=== PATIENT | female | born 1985 | race Two or more races ===

== ENCOUNTER 2017-03-19 17:26 | Emergency (ER) | payer OTHER ==
[~2017-03-19] VITALS: Ht 149.9 cm; Wt 62.6 kg
[2017-03-19 17:27] VITALS: BP 112/67
[2017-03-19] MEDS ORDERED: METF850T2 PO (18:19)
== END 2017-03-19 19:07 | disposition home or self-care (01) ==
LOC: ED 19:00
DX: O03.9 Complete or unspecified spontaneous abortion without complication (principal)
CPT/HCPCS: 36415; 76801; 84702; 85025; 86901; 99285

== ENCOUNTER 2018-03-21 09:22 | Outpatient (CLI) | payer OTHER ==
[~2018-03-21] VITALS: Ht 149.9 cm; Wt 64.5 kg
[~2018-03-21 09:22] MED LIST: METF850T2 PO
[2018-03-21 09:50] VITALS: BP 109/59
== END 2018-03-21 11:00 | disposition home or self-care (01) ==
LOC: LDOP 09:22
PROVIDERS: ATTEND Student in an Organized Health Care Education/Training Program
DX: O42.912 Preterm premature rupture of membranes, unspecified as to length of time between rupture and onset of labor, second trimester (principal)
CPT/HCPCS: 59025; 84112; 99201; G0463

== ENCOUNTER 2018-07-15 20:07 | Outpatient (CLI) | payer OTHER ==
[~2018-07-15] VITALS: Ht 149.9 cm; Wt 68.1 kg
[~2018-07-15 20:07] MED LIST changes: +METF850T10 PO; -METF850T2 PO
== END 2018-07-15 21:38 | disposition home or self-care (01) ==
LOC: LDOP 20:07
PROVIDERS: ATTEND Student in an Organized Health Care Education/Training Program
DX: O26.893 Other specified pregnancy related conditions, third trimester (principal); Z3A.37 37 weeks gestation of pregnancy; R10.9 Unspecified abdominal pain
CPT/HCPCS: 59025; 99211; G0463

== ENCOUNTER 2018-07-29 11:39 | Inpatient (IN) | payer OTHER ==
[~2018-07-29] VITALS: Ht 149.9 cm; Wt 69.0 kg
[2018-07-29] MEDS ORDERED: OXYTOCIN 30U/ 0.9% NaCL 500ML 500 ML IV ONE (11:43)
[2018-07-29] MEDS: LACTATED RINGERS 1,000 ML IV SCH ×2 (11:43→19:43)
[2018-07-29] MEDS ORDERED: CALCIUM CARBONATE 500 MG TAB.CHEW PO PRN (12:00)
[2018-07-29] MEDS ORDERED: ONDANSETRON 2MG/ML, 2ML IVPush PRN (12:00)
[2018-07-29 12:22] LABS: BASOPHILS # (AUTO) 0.03 x10^3/uL (0-0.1); BASOPHILS % (AUTO) 0 % (0-1); EOSINOPHILS # (AUTO) 0.01 x10^3/uL (0-0.4); EOSINOPHILS % (AUTO) 0 % (1-7); LYMPHOCYTES # (AUTO) 2.02 x10^3/uL (1-3.4); LYMPHOCYTES % (AUTO) 29 % (22-44); MD NO; MEAN PLATELET VOLUME 10.5 fL (7.4-10.4); MONOCYTES # (AUTO) 0.35 x10^3/uL (0.2-0.8); MONOCYTES % (AUTO) 5 % (2-9); NEUTROPHILS # (AUTO) 4.58 x10^3/uL (1.8-6.8); NEUTROPHILS % (AUTO) 66 % (42-75); PLATELET COUNT 185 x10^3/uL (130-400); RED CELL DISTRIBUTION WIDTH 15.8 % (9.6-15.2)
[2018-07-29] MEDS ORDERED: NEWBORN KIT ONE (12:26)
[2018-07-29] MEDS ORDERED: MISOPROSTOL 200 MCG TABLET ONE (14:30)
[2018-07-29] MEDS ORDERED: OXYTOCIN 30U/ 0.9% NaCL 500ML 500 ML ONE ×2 (14:30→18:24)
[2018-07-29] MEDS ORDERED: LIDOCAINE/PF 1%, 30ML ONE (14:30)
[2018-07-29] MEDS ORDERED: FENTANYL PF 100 MCG/2ML ONE ×2 (16:04→16:50)
[2018-07-29] MEDS: FENTANYL PF 100 MCG/2ML IVPush PRN ×2 (16:08→17:03)
[2018-07-29] MEDS ORDERED: CARBOPROST TROMETHAMINE 250 MCG/ML, 1ML IM PRN (18:30)
[2018-07-29] MEDS ORDERED: METHYLERGONOVINE 0.2 MG/ML IM PRN (18:30)
[2018-07-29] MEDS ORDERED: OXYcodone IR 5MG TABLET PO PRN (18:30)
[2018-07-29] MEDS ORDERED: IBUPROFEN 600 MG TABLET PO PRN (18:30)
[2018-07-29] MEDS ORDERED: OXYcodone/APAP 5/325MG TABLET PO PRN (18:30)
[2018-07-29] MEDS ORDERED: DOCUSATE 100 MG CAPSULE PO PRN (18:30)
[2018-07-29] MEDS ORDERED: IBUPROFEN 800 MG TABLET PO PRN (18:30)
[2018-07-29] MEDS ORDERED: BISACODYL 10 MG SUPP PR PRN (18:30)
[2018-07-29] MEDS ORDERED: MISOPROSTOL 200 MCG TABLET PR PRN (18:30)
[2018-07-29] MEDS ORDERED: ACETAMINOPHEN 325 MG TABLET PO PRN (18:30)
[2018-07-29] MEDS: OXYTOCIN 30U/ 0.9% NaCL 500ML 500 ML IV SCH (18:52)
[2018-07-29 21:18] VITALS: BP 105/66
[2018-07-30 00:53] VITALS: BP 100/62
[2018-07-30 02:02] LABS: BASOPHILS # (AUTO) 0.05 x10^3/uL (0-0.1); BASOPHILS % (AUTO) 1 % (0-1); EOSINOPHILS % (AUTO) 0 % (1-7); LYMPHOCYTES % (AUTO) 19 % (22-44); MD NO; MEAN CORPUSCULAR HEMOGLOBIN 29.1 pg (27.0-34.8); MEAN CORPUSCULAR HGB CONC 33.2 g/dL (32.4-35.8); MEAN CORPUSCULAR VOLUME 87.4 fL (80-100); MEAN PLATELET VOLUME 9.8 fL (7.4-10.4); MONOCYTES # (AUTO) 0.26 x10^3/uL (0.2-0.8); MONOCYTES % (AUTO) 2 % (2-9); NEUTROPHILS # (AUTO) 8.78 x10^3/uL (1.8-6.8); NEUTROPHILS % (AUTO) 79 % (42-75); PLATELET COUNT 164 x10^3/uL (130-400); RED BLOOD COUNT 3.98 x10^6/uL (3.82-5.3)
[2018-07-30] MEDS: LACTATED RINGERS 1,000 ML IV SCH ×2 (03:43→11:43)
[2018-07-30] MEDS: OXYTOCIN 30U/ 0.9% NaCL 500ML 500 ML IV SCH ×2 (04:14→12:23)
[2018-07-30 04:30] VITALS: BP 99/64
[2018-07-30] MEDS ORDERED: PRENATAL VIT/IRON/FA 1 EACH TABLET PO SCH (09:00)
[2018-07-30 09:32] VITALS: BP 96/62
[2018-07-30 12:19] VITALS: BP 97/61
[2018-07-30 16:37] VITALS: BP 98/79
[2018-07-30] MEDS ORDERED: DOCU-131 PO (16:48)
[2018-07-30] MEDS ORDERED: IBUP-1222 PO (16:48)
== END 2018-07-30 17:42 | disposition home or self-care (01) | DRG 807 ==
LOC: LDIP 11:39 → 2NW 20:18
PROVIDERS: ADMIT Student in an Organized Health Care Education/Training Program; ATTEND Student in an Organized Health Care Education/Training Program
PROC: 10E0XZZ Delivery of Products of Conception, External Approach (ICD-10-PCS; principal; 2018-07-29)
PROC: 10907ZC Drainage of Amniotic Fluid, Therapeutic from Products of Conception, Via Natural or Artificial Opening (ICD-10-PCS; 2018-07-29)
DX: O80 Encounter for full-term uncomplicated delivery (principal); Z37.0 Single live birth; Z3A.39 39 weeks gestation of pregnancy
CPT/HCPCS: 36415; 85025; 86850; 86900; G0378; J3010; J2590; J7120

== ENCOUNTER 2021-06-25 10:23 | Emergency (ER) | payer OTHER ==
[~2021-06-25] VITALS: Ht 149.9 cm; Wt 66.7 kg
[~2021-06-25 10:23] MED LIST changes: +DOCU-131 PO; +IBUP-1222 PO
[2021-06-25 10:32] VITALS: BP 115/74
[2021-06-25 11:27] LABS: BASOPHILS % (AUTO) 1 % (0-1); EOSINOPHILS % (AUTO) 0 % (1-7); LYMPHOCYTES % (AUTO) 48 % (22-44); MEAN CORPUSCULAR HGB CONC 33.4 g/dL (32.4-35.8); MEAN PLATELET VOLUME 8.4 fL (7.4-10.4); MONOCYTES % (AUTO) 10 % (2-9); NEUTROPHILS % (AUTO) 41 % (42-75); PLATELET COUNT 254 x10^3/uL (130-400); RED BLOOD COUNT 5.13 x10^6/uL (3.82-5.3); RED CELL DISTRIBUTION WIDTH 13.8 % (9.6-15.2)
[2021-06-25 11:36] LABS: ALBUMIN 4.2 g/dL (3.4-5.0); ANION GAP 9 mmol/L (5-15); CALCIUM 8.6 mg/dL (8.5-10.1); CHLORIDE 104 mmol/L (98-107)
[2021-06-25 11:42] LABS: ALANINE AMINOTRANSFERASE 25 U/L (12-78); ALKALINE PHOSPHATASE 51 U/L (45-117); BILIRUBIN,TOTAL 0.5 mg/dL (0.2-1.0); TOTAL PROTEIN 8.5 g/dL (6.4-8.2); TROPONIN I < 0.015 ng/mL (0.000-0.045)
== END 2021-06-25 13:46 | disposition home or self-care (01) ==
LOC: ED 13:20
DX: R07.89 Other chest pain (principal)
CPT/HCPCS: 36415; 71045; 80053; 84484; 85025; 93005; 99285